=== PATIENT | female | born 1980 ===

== ENCOUNTER 2020-09-23 13:26 | Outpatient (CLI) | payer OTHER | END 2020-09-23 23:59 | disposition home or self-care (01) | LOC: CFH 13:26 | PROVIDERS: ATTEND Physician Assistant | DX: N60.02 Solitary cyst of left breast (principal); N63.20 Unspecified lump in the left breast, unspecified quadrant; Z98.82 Breast implant status | CPT/HCPCS: 76642; 77062; 77066; G0279 ==